=== PATIENT | female | born 1935 | race Caucasian/White ===

== ENCOUNTER → 2017-12-26 06:36 | Outpatient (CLI) | payer OTHER ==
[~2017-12-26 06:36] MED LIST: CAPOTEN12.5 MG; MECLIZINE HCL12.5 MG PO; NADOLOL20 MG; SIMVASTATIN20 MG PO
== END | disposition home or self-care (01) ==
LOC: LAB 06:36
DX: K75.4 Autoimmune hepatitis (principal); K57.30 Diverticulosis of large intestine without perforation or abscess without bleeding; Z86.010 Personal history of colon polyps

== ENCOUNTER 2018-05-16 16:15 | Emergency (ER) | payer OTHER ==
[~2018-05-16] VITALS: Ht 154.9 cm; Wt 66.7 kg
== END 2018-05-16 19:39 | disposition home or self-care (01) ==
LOC: ER 16:15
DX: R31.29 Other microscopic hematuria (principal)

== ENCOUNTER → 2018-06-28 07:37 | Outpatient (CLI) | payer OTHER | END | disposition home or self-care (01) | LOC: LAB 07:37 | DX: E78.49 Other hyperlipidemia (principal); I10 Essential (primary) hypertension; E07.89 Other specified disorders of thyroid; R73.09 Other abnormal glucose ==

== ENCOUNTER 2018-09-14 06:37 | Outpatient (CLI) | payer OTHER | END 2018-09-14 06:52 | disposition home or self-care (01) | LOC: LAB 06:37 | DX: K74.60 Unspecified cirrhosis of liver (principal); Z86.010 Personal history of colon polyps; K57.30 Diverticulosis of large intestine without perforation or abscess without bleeding; R19.5 Other fecal abnormalities; K62.5 Hemorrhage of anus and rectum; I86.4 Gastric varices ==

== ENCOUNTER 2019-03-14 07:00 | Outpatient (CLI) | payer OTHER | END 2019-03-14 07:08 | disposition home or self-care (01) | LOC: LAB 07:00 | DX: R19.5 Other fecal abnormalities (principal); K62.5 Hemorrhage of anus and rectum; K57.30 Diverticulosis of large intestine without perforation or abscess without bleeding; Z86.010 Personal history of colon polyps; I86.4 Gastric varices; K74.69 Other cirrhosis of liver ==

== ENCOUNTER 2021-07-18 09:41 | Inpatient (IN) | payer OTHER ==
[~2021-07-18] VITALS: Ht 132.1 cm; Wt 68.0 kg
[2021-07-21] MEDS ORDERED: SIMVASTATIN10 MG (08:41)
== END 2021-07-27 06:38 | disposition expired | DRG 368 ==
LOC: ER 09:41 → ICU-2 18:15 → ICU 18:15
PROVIDERS: ADMIT Internal Medicine; ATTEND Internal Medicine
PROC: 02HV33Z Insertion of Infusion Device into Superior Vena Cava, Percutaneous Approach (ICD-10-PCS; 2021-07-19)
PROC: 30233N1 Transfusion of Nonautologous Red Blood Cells into Peripheral Vein, Percutaneous Approach (ICD-10-PCS; 2021-07-19)
PROC: 0DJ08ZZ Inspection of Upper Intestinal Tract, Via Natural or Artificial Opening Endoscopic (ICD-10-PCS; principal; 2021-07-20)
PROC: 5A1945Z Respiratory Ventilation, 24-96 Consecutive Hours (ICD-10-PCS; 2021-07-22)
PROC: 0BH17EZ Insertion of Endotracheal Airway into Trachea, Via Natural or Artificial Opening (ICD-10-PCS; 2021-07-22)
DX: I85.01 Esophageal varices with bleeding (principal); J96.00 Acute respiratory failure, unspecified whether with hypoxia or hypercapnia; R57.1 Hypovolemic shock; K92.1 Melena; K74.69 Other cirrhosis of liver; R00.0 Tachycardia, unspecified; D64.9 Anemia, unspecified; E87.6 Hypokalemia; R41.82 Altered mental status, unspecified; I10 Essential (primary) hypertension; K76.89 Other specified diseases of liver; I95.89 Other hypotension; Z20.822 Contact with and (suspected) exposure to COVID-19; D50.0 Iron deficiency anemia secondary to blood loss (chronic)